=== PATIENT | female | born 1980 | race Caucasian/White ===

== ENCOUNTER 2018-04-16 13:42 | Emergency (ER) | payer OTHER ==
[~2018-04-16] VITALS: Ht 170.2 cm; Wt 79.4 kg
[2018-04-16] MEDS ORDERED: ADVAIR 100-501 EACH IH (13:56)
== END 2018-04-16 14:27 | disposition home or self-care (01) ==
LOC: ER 13:42
DX: H61.391 Other acquired stenosis of right external ear canal (principal)